=== PATIENT | female | born 1950 | race Two or more races ===

== ENCOUNTER 2017-07-26 01:21 | Inpatient (IN) | payer MEDICARE, OTHER ==
[~2017-07-26] VITALS: Ht 165.1 cm; Wt 61.7 kg
[2017-07-26 02:45] VITALS: BP 143/86
[2017-07-26] MEDS ORDERED: LORAZEPAM 0.5 MG TABLET PO PRN (04:00)
[2017-07-26] MEDS ORDERED: TEMAZEPAM 7.5 MG CAPSULE PO PRN (04:00)
[2017-07-26] MEDS ORDERED: MAG HYDROX/AL HYDROX/SIMETH 30 ML UDC PO PRN (04:00)
[2017-07-26] MEDS ORDERED: ACETAMINOPHEN 325 MG TABLET PO PRN (04:00)
[2017-07-26] MEDS ORDERED: MAGNESIUM HYDROXIDE 30 ML UDC PO PRN (04:00)
--- NOTE | 2017-07-26 04:07 | NUR ---
ADMISSION NOTES ADMITTED THIS 67 Y/O FEMALE PATIENT DIRECT ADMIT FROM [facility]. PT IS ON 5150 HOLD FOR DTO, GD. PSYCH DX OF SCHIZOPRENIA. MEDICAL DX OF HTN, ASTHMA. PER HOLD PT IS DELUSIONAL, PARANOID, AGGRESSIVE AND ASSAULTIVE TOWARDS OTHERS DUE TO MENTAL ILLNESS. PT HAS HISTORY OF PSYCHIATRIC HOSPITALIZATIONS AND NOT CURRENTLY TAKING PSYCHOTROPIC MEDICATIONS. PT IS DELUSIONAL PT STATES "I AM YASH, NO ONE WILL STOP ME." PT UNABLE TO PROVIDE FOOD, CLOTHING OR USP DUE TO MENTAL ILLNESS. PT UNABLE TO ENGAGE IN A SAFELY PLAN OR ACCEPT ASSISTANCE FROM OTHERS. UPON FACE TO FACE ASSESSMENT PATIENT IS A&O X2-3, DISORGANIZED THOUGHTS, DELUSIONAL, PARANOID, IRRITABLE, EASILY AGITATED, UNCOOPERATIVE WITH STAFF. V/S WNL. NO ACUTE RESPIRATORY DISTRESS. PT REFUSED TO SIGN CONSENT FORMS. PSYCH DR. JALLOH. MEDICAL DR. ALFONSO BOTH AWARE AND NOTIFIED OF THE ADMISSION. PT REFUSED SKIN/BODY CHECKED. REFUSED MRSA SWAB. BELONGINGS AND CONTRABAND CHECKED AND PLACED IN THE SAFE CABINET. PATIENT RIGHT HAND BOOK GIVEN AND EXPLAINED TO THE PT. ALL NEEDS ATTENDED AND ANTICIPATED. WILL CONTINUE TO MONITOR FOR SAFETY AND BEHAVIOR.
[2017-07-26] MEDS ORDERED: FLUT16SP16 NS (04:43)
[2017-07-26] MEDS ORDERED: AMLO5TAB2 PO (04:43)
[2017-07-26] MEDS ORDERED: ALBU18HF2 INH (04:43)
[2017-07-26 06:24] VITALS: BP 143/86
[2017-07-26] MEDS ORDERED: ALBUTEROL SULFATE 8 GM HFA.AER.AD IH PRN (07:30)
[2017-07-26 07:59] VITALS: BP 154/90
[2017-07-26 07:59] LABS: CHOLESTEROL 164 mg/dL (<200); HDL CHOLESTEROL 86 mg/dL (40-60); LDL 73 mg/dL (0-99); TRIGLYCERIDES 30 mg/dL (30-150)
[2017-07-26] MEDS ORDERED: ALBUTEROL FS 2.5 MG/3 ML VIAL.NEB NEB PRN (08:30)
[2017-07-26] MEDS: AMLODIPINE BESYLATE 5 MG TABLET PO SCH (08:47)
[2017-07-26] MEDS: FLUTICASONE PROPIONATE 16 GM BOTTLE NS SCH (08:47)
[2017-07-26] MEDS: DIVALPROEX SODIUM 250 MG TABLET.DR PO SCH ×2 (10:00→21:00)
[2017-07-26] MEDS: HALOPERIDOL 5 MG TABLET PO SCH ×2 (10:00→17:00)
[2017-07-26] MEDS: BENZTROPINE MESYLATE (1 MG) 1 MG TABLET PO SCH ×2 (10:00→17:00)
--- NOTE | 2017-07-26 14:27 | NUR ---
GPS RN NOTE: PATIENT IN THE ROOM WAS SEEN BY MD NO S/S DISTRESS NOTED AT THIS TIME ,PATIENT CONTINUE REFUSING MEDICATIONS, DENIES PAIN OR DISCOMFORT PATIENT ,REFUSED SKIN ASSESSMENT AND MRSA NARES WILL CONTINUE MONITORING FOR SAFETY AND BEHAVIOR Q 15 MIN.
[2017-07-26 16:00] VITALS: BP 145/90
[2017-07-26] MEDS ORDERED: HALOPERIDOL 5 MG TABLET PO SCH (17:00)
[2017-07-26 19:51] VITALS: BP 160/96
--- NOTE | 2017-07-26 21:30 | NUR ---
GPS RN: PATIENT REFUSED TO TAKE HER SCHEDULED MEDICATIONS, PER PATIENT "GO TAKE IT YOURSELF, I DON'T NEED ANYTHING RIGHT NOW!" PATIENT WAS NOTED TO BE EASILY AGITATED, GUARDED AND UNPREDICTABLE. EXPLAINED TO PATIENT THE NEED FOR COMPLIANCE, BUT PATIENT STILL REFUSED TO TAKE HER MEDS. WILL INFORM DAY SHIFT NURSE. SPRAY DRIER WANTS TO TAKE THE PATIENT'S BP. PATIENT HAD A HIGH BP READING AT THE START OF THE SHIFT BECAUSE SHE WAS AGITATED TOWARDS STAFF, RESISTING CARE AND VITAL SIGNS CAUSING TO HAVE A FALSE HIGH BP. FOR THE SECOND TAKING PATIENT REFUSED TO HAVE IT DONE THIS TIME. SHE JUST TURNED HER FACE AWAY FROM STAFF. WILL REPORT TO DAY SHIFT NURSE THE SAID BEHAVIOR.
[2017-07-27 08:00] VITALS: BP 155/90
[2017-07-27] MEDS: HALOPERIDOL 5 MG TABLET PO SCH ×2 (08:35→16:59)
[2017-07-27] MEDS: DIVALPROEX SODIUM 250 MG TABLET.DR PO SCH ×2 (08:35→21:00)
[2017-07-27] MEDS: AMLODIPINE BESYLATE 5 MG TABLET PO SCH (08:35)
[2017-07-27] MEDS: BENZTROPINE MESYLATE (1 MG) 1 MG TABLET PO SCH ×2 (08:35→16:59)
[2017-07-27] MEDS: FLUTICASONE PROPIONATE 16 GM BOTTLE NS SCH (08:35)
--- NOTE | 2017-07-27 08:35 | NUR ---
GPS RN NOTE: PATIENT IN THE ROOM RESTING IN BED AWAKE, PT PARANOID,DELUSIONAL ARGUMENTATIVE, HYPERVERBAL.PT LYING IN BED TALKING TO SELF REFUSING AM MEDICATIONS EXPLAIN RISK AND BENEFITS , PATIENT GETS VERBALLY ABUSIVE AND ARGUMENTATIVE.EXPLAIN PT IMPORTANCE MEDICATIONS PATIENT CONTINUE REFUSING X3. WILL CONTINUE MONITORING FOR SAFETY AND BEHAVIOR Q 15 MIN
[2017-07-27 16:00] VITALS: BP 134/90
--- NOTE | 2017-07-27 17:15 | NUR ---
GPS RN NOTE: PATIENT REFUSED ALL SHIFT MEDICATIONS, MRSA SWAB , SKIN ASSESSMENT,LABS. DR JALLOH AWARE NO NEW ORDERS AT THIS TIME, WILL CONTINUE MONITORING.
[2017-07-27 20:27] VITALS: BP 148/89
[2017-07-28] MEDS: FLUTICASONE PROPIONATE 16 GM BOTTLE NS SCH (08:24)
[2017-07-28] MEDS: AMLODIPINE BESYLATE 5 MG TABLET PO SCH (08:25)
[2017-07-28] MEDS: DIVALPROEX SODIUM 250 MG TABLET.DR PO SCH ×2 (08:25→21:00)
[2017-07-28] MEDS: HALOPERIDOL 5 MG TABLET PO SCH ×2 (08:25→17:00)
[2017-07-28] MEDS: BENZTROPINE MESYLATE (1 MG) 1 MG TABLET PO SCH ×2 (08:25→17:00)
[2017-07-28 15:56] VITALS: BP 161/86
[2017-07-29] MEDS: BENZTROPINE MESYLATE (1 MG) 1 MG TABLET PO SCH ×2 (08:58→17:00)
[2017-07-29] MEDS: FLUTICASONE PROPIONATE 16 GM BOTTLE NS SCH (08:58)
[2017-07-29] MEDS: DIVALPROEX SODIUM 250 MG TABLET.DR PO SCH ×2 (08:58→21:00)
[2017-07-29] MEDS: AMLODIPINE BESYLATE 5 MG TABLET PO SCH (08:59)
[2017-07-29] MEDS: HALOPERIDOL 5 MG TABLET PO SCH ×2 (08:59→17:00)
--- NOTE | 2017-07-29 15:31 | NUR ---
SW college intern as well as Preparation Room Manager made several attempts to conduct an assessment. Patient was uncooperative and hostile. Patient refused to answer any questions and became aggressive. SID attempted to call patient's "person to notify" Luis Alberto, three times. All three times the phone went straight to voicemail, but SID was unable to leave voicemail because voicemail box was full. SID also called patient's home number, with no success.
--- NOTE | 2017-07-29 16:41 | NUR ---
Initial Discharge Plan: According to face sheet, patient's address is listed as [address] [place] [address] . However, per hold it is stated that patient has lost secure housing. beater worker helper and social work internal grinder attempted three times to contact Luis Alberto, . The phone number went straight to voicemail with voicemail being full. beater worker helper was unable to leave number. beater worker helper also attempted to call patient's home and was unsuccessful. beater worker helper could not find any contact information in patient's charts/notes. beater worker helper will follow up with MD and will work to arrange safe discharge.
[2017-07-29 16:42] VITALS: BP 120/60
[2017-07-29 19:59] VITALS: BP 111/80
[2017-07-30] MEDS: DIVALPROEX SODIUM 250 MG TABLET.DR PO SCH ×2 (08:49→21:00)
[2017-07-30] MEDS: HALOPERIDOL 5 MG TABLET PO SCH ×2 (08:49→16:20)
[2017-07-30] MEDS: BENZTROPINE MESYLATE (1 MG) 1 MG TABLET PO SCH ×2 (08:49→16:20)
[2017-07-30] MEDS: AMLODIPINE BESYLATE 5 MG TABLET PO SCH (08:49)
[2017-07-30] MEDS: FLUTICASONE PROPIONATE 16 GM BOTTLE NS SCH (08:49)
--- NOTE | 2017-07-30 09:00 | NUR ---
GPS/RN PATIENT ADAMANTLY REFUSED ALL 0900 MEDICATIONS X 3, EXPLAINED RISKS AND BENEFITS, CONTINUES TO REFUSE, WILL CONTINUE TO ENCOURAGE TO COMPLY WITH MD REGIMEN.
--- NOTE | 2017-07-30 14:05 | NUR ---
DR. JALLOH MADE AWARE FOR THE [facility] HEARING SCHEDULE FOR 2:30 PM TOMORROW (07/30/17).
--- NOTE | 2017-07-30 16:26 | NUR ---
GPS/RN PATIENT ADAMANTLY REFUSED ALL 1700 MEDICATIONS X 3, EXPLAINED RISKS AND BENEFITS, CONTINUES TO REFUSE, WILL CONTINUE TO ENCOURAGE TO COMPLY WITH MD REGIMEN.
[2017-07-30 20:00] VITALS: BP 157/95
[2017-07-31] MEDS: FLUTICASONE PROPIONATE 16 GM BOTTLE NS SCH (08:31)
[2017-07-31] MEDS: BENZTROPINE MESYLATE (1 MG) 1 MG TABLET PO SCH ×2 (08:31→17:00)
[2017-07-31] MEDS: AMLODIPINE BESYLATE 5 MG TABLET PO SCH (08:32)
[2017-07-31] MEDS: DIVALPROEX SODIUM 250 MG TABLET.DR PO SCH ×2 (08:32→21:00)
[2017-07-31] MEDS: HALOPERIDOL 5 MG TABLET PO SCH ×2 (08:32→17:00)
[2017-07-31] MEDS: HALOPERIDOL LACTATE INJ 5 MG/ML VIAL IM PRN (17:29)
[2017-07-31 20:00] VITALS: BP 164/84
--- NOTE | 2017-07-31 21:05 | NUR ---
PATIENT REFUSED TO TAKE HER SCHEDULED MEDICATIONS, PER PATIENT "LEAVE ME ALONE, I DON'T NEED ANY MEDICATIONS" EXPLAINED THE RISK AND BENEFITS. PATIENT STILL REFUSED TO TAKE HER MEDS. WILL CONTINUE TO MONITOR.
[2017-08-01] MEDS: BENZTROPINE MESYLATE (1 MG) 1 MG TABLET PO SCH ×2 (08:25→17:00)
[2017-08-01] MEDS: FLUTICASONE PROPIONATE 16 GM BOTTLE NS SCH (08:25)
[2017-08-01] MEDS: AMLODIPINE BESYLATE 5 MG TABLET PO SCH (08:26)
[2017-08-01] MEDS: DIVALPROEX SODIUM 250 MG TABLET.DR PO SCH ×2 (08:26→21:00)
[2017-08-01] MEDS: HALOPERIDOL 5 MG TABLET PO SCH ×2 (08:26→17:00)
[2017-08-01] MEDS: HALOPERIDOL LACTATE INJ 5 MG/ML VIAL IM PRN ×2 (08:27→17:10)
[2017-08-01 16:00] VITALS: BP 126/92
[2017-08-01 20:00] VITALS: BP 136/88
[2017-08-02] MEDS: DIVALPROEX SODIUM 250 MG TABLET.DR PO SCH ×2 (08:55→21:00)
[2017-08-02] MEDS: FLUTICASONE PROPIONATE 16 GM BOTTLE NS SCH (08:55)
[2017-08-02] MEDS: BENZTROPINE MESYLATE (1 MG) 1 MG TABLET PO SCH ×2 (08:55→16:27)
[2017-08-02] MEDS: HALOPERIDOL LACTATE INJ 5 MG/ML VIAL IM PRN ×2 (08:56→16:38)
[2017-08-02] MEDS: HALOPERIDOL 5 MG TABLET PO SCH ×2 (08:56→16:27)
[2017-08-02] MEDS: AMLODIPINE BESYLATE 5 MG TABLET PO SCH (08:56)
[2017-08-02] MEDS ORDERED: HALOPERIDOL DECANOATE IM 100 MG/ML AMPUL IM ONE (14:30)
[2017-08-02 16:00] VITALS: BP 141/80
--- NOTE | 2017-08-02 16:43 | NUR ---
RN NOTES PATIENT REFUSED 1700 SCHEDULED MEDICATION OFFERED X3, BUT STILL REFUSED, ADMINISTERED HALDOL 5 MG/ML IM RIGHT UPPER OUTER AREA PER REFUSAL PO MEDICATION, V/S TAKEN, BP- 141/80, P-91, CONTINUED MONITORING.
--- NOTE | 2017-08-02 21:24 | NUR ---
RN NOTES PATIENT REFUSED 2100 DEPAKOTE SCHEDULED MEDICATION OFFERED X3, BUT STILL REFUSED, WILL CONTINUE TO ENCOURAGED TO COMPLY WITH MD REGIMEN .
--- NOTE | 2017-08-03 06:06 | NUR ---
RN GPS NOTES PT. REFUSED VITAL SIGNS IN DURING SHIFT , ENCOURAGED FOR VITAL SIGNS , EXPLAINED RISKS AND BENEFITS STILL REFUSED
[2017-08-03 08:00] VITALS: BP 129/79
--- NOTE | 2017-08-03 08:00 | NUR ---
GPS/RN PATIENT REFUSED VITAL SIGNS X 3, EXPLAINED RISKS AND BENEFITS, CONTINUES TO REFUSE, WILL CONTINUE TO ENCOURAGE TO COMPLY WITH REGIMEN AND TREATMENTS.
[2017-08-03] MEDS: HALOPERIDOL LACTATE INJ 5 MG/ML VIAL IM PRN ×2 (08:58→16:41)
[2017-08-03] MEDS: AMLODIPINE BESYLATE 5 MG TABLET PO SCH (09:00)
[2017-08-03] MEDS: DIVALPROEX SODIUM 250 MG TABLET.DR PO SCH ×2 (09:00→21:00)
[2017-08-03] MEDS: FLUTICASONE PROPIONATE 16 GM BOTTLE NS SCH (09:00)
[2017-08-03] MEDS: BENZTROPINE MESYLATE (1 MG) 1 MG TABLET PO SCH ×2 (09:00→16:40)
[2017-08-03] MEDS: HALOPERIDOL 5 MG TABLET PO SCH ×2 (09:00→16:40)
--- NOTE | 2017-08-03 09:00 | NUR ---
GPS/RN PATIENT REFUSED HALDOL PO X3, EXPLAINED RISKS AND BENEFITS, CONTINUES TO REFUSE, ADMINISTERED HALDOL 5MG IM FOR REFUSAL, WILL CONTINUE TO ENCOURAGE TO COMPLY WITH MD REGIMEN.
--- NOTE | 2017-08-03 11:19 | NUR ---
SW left a voicemail for pt's contact Luis Alberto, . SW left contact information. SW wished to discuss discharge plan and to validate some information on patient.
[2017-08-03 16:00] VITALS: BP 126/80
--- NOTE | 2017-08-03 16:10 | NUR ---
SID faxed inquiry to [facility] [address] [place] [address] , fax number: [phone]. SID will follow up. SID faxed inquiry to [facility] [address] [place] [address] , fax number: [phone]. SID will follow up.
--- NOTE | 2017-08-03 17:21 | NUR ---
GPS/RN PATIENT REFUSED TO PROVIDE URINE SPECIMEN FOR URINALYSIS X 3, EXPLAINED RISKS AND BENEFITS, WILL CONTINUE TO ENCOURAGE TO COMPLY WITH REGIMEN AND TREATMENTS.
--- NOTE | 2017-08-03 19:30 | NUR ---
GPS RN NOTE, RECEIVED PATIENT AWAKE AND IN BED, NO S/S OR COMPLAINTS OF PAIN AT THIS TIME. PATIENT IS DISPLAYING NO S/S OF APPARENT DISTRESS AT THIS TIME. PATIENT BREATHING IS UNLABORED WITH EQUAL RISE AND FALL OF THE CHEST. PATIENT IS ALERT AND ORIENTED X 2 ON ROOM AIR WITH A SPO2 OF 97%. PATIENT IS VERBALLY ABUSIVE AT TIMES , REFUSING MEDICATION, UNCOOPERATIVE, AND NEEDS REORIENTATION. PATIENT DENIES SUICIDE IDEATIONS AND HOMICIDAL IDEATIONS AT THIS TIME. PATIENT EDUCATED ON THE USE OF THE CALL ALCOCER. PATIENT BED SIDE RAILS UP X2 FOR SAFETY, BED IS LOCKED AND LOW, AND I WILL CONTINUE TO MONITOR AND MAINTAIN SAFETY Q15MIN WITH THE HELP OF STAFF.
--- NOTE | 2017-08-03 21:18 | NUR ---
GPS RN NOTE, PATIENT REFUSED TO TAKE DEPAKOTE 250MG 1 TAB PO Q12HR. OFFERED DEPAKOTE THREE TIMES AND STILL PATIENT REFUSED STATING, " YOU GO TO HELL AND GET TO STEPPING ". EDUCATED PATIENT ON THE RISKS AND BENEFITS OF TAKING AND REFUSING AFOREMENTIONED MEDICATION. WILL CONTINUE TO MONITOR THIS PATIENT.
--- NOTE | 2017-08-04 07:30 | NUR ---
PT RECEIVED RESTING COMFORTABLY IN BED WITH EYES CLOSED. NO S/S OR C/O PAIN OR DISTRESS NOTED. SIDE RAILS UP X2, WILL CONTINUE PLAN OF CARE.
[2017-08-04] MEDS: DIVALPROEX SODIUM 250 MG TABLET.DR PO SCH ×2 (09:00→21:00)
[2017-08-04] MEDS: BENZTROPINE MESYLATE (1 MG) 1 MG TABLET PO SCH ×2 (09:00→17:00)
[2017-08-04] MEDS: AMLODIPINE BESYLATE 5 MG TABLET PO SCH (09:00)
[2017-08-04] MEDS: FLUTICASONE PROPIONATE 16 GM BOTTLE NS SCH (09:00)
[2017-08-04] MEDS: HALOPERIDOL 5 MG TABLET PO SCH ×2 (09:00→17:00)
[2017-08-04] MEDS: HALOPERIDOL LACTATE INJ 5 MG/ML VIAL IM PRN ×2 (10:23→17:08)
--- NOTE | 2017-08-04 11:25 | NUR ---
SID received a message from January at [facility] who stated that patient was accepted into the facility. SID spoke with Tania, who stated she is pt's friend and used to be her conservator. Tania stated that some time ago the court ruled that pt no longer needed to be under a conservatorship. Tania stated that she was still close to pt. Tania informed SID that pt's boyfriend wants to take care of pt after she is stable. Tania stated that a facility was a good idea before patient returns home. Addendum: 08/04/17 at 1204 by ROHINI LAU Tania stated that she will fax over some documents that she deems important. SID will wait to receive fax
--- NOTE | 2017-08-04 18:41 | NUR ---
CHANGE OF SHIFT REPORT PT RESTING COMFORTABLY IN BED WITH EYES CLOSED. NO S/S OR C/O PAIN OR DISTRESS NOTED. SIDE RAILS UP X2. PT KEPT CLEAN, DRY, AND COMFORTABLE. NO SIGNIFICANT CHANGES SINCE PREVIOUS SHIFT. WILL GIVE REPORT TO JORGE ALBERTO NUNN.
--- NOTE | 2017-08-04 21:00 | NUR ---
RN NOTES PATIENT REFUSE VITAL SIGNS, ENCOURAGED X3, BUT STILL REFUSED, WILL CONTINUE TO ENCOURAGED TO COMPLY WITH MD REGIMEN
--- NOTE | 2017-08-04 21:29 | NUR ---
RN NOTES PATIENT REFUSED 2100 DEPAKOTE SCHEDULED MEDICATION OFFERED X3, BUT STILL REFUSED, WILL CONTINUE TO ENCOURAGED TO COMPLY WITH MD REGIMEN .
--- NOTE | 2017-08-05 06:17 | NUR ---
RN NOTES PATIENT REFUSED AM LABS ENCOURAGED X3, BUT STILL REFUSED, WILL CONTINUE TO ENCOURAGED TO COMPLY WITH MD REGIMEN
--- NOTE | 2017-08-05 07:00 | NUR ---
RN OPENING NOTES REPORT REC'VD FROM GUSTABO NUNN. PT PACING IN ACTIVITY ROOM ANGRY FACIAL EXPRESSIONS. PT REFUSED VITAL SIGNS DESPITE EXPLANATION OF VITALS IMPORTANCE FOR [facility] BP MED. WILL CONT TO MONITOR CLOSELY.
--- NOTE | 2017-08-05 08:30 | NUR ---
RN NOTES PT REFUSED PO MEDS, ADMIN HALDOL IM INJ W/ JASON AND NEVILLE STAFF. REFUSED BLOOD DRAW.
[2017-08-05] MEDS: BENZTROPINE MESYLATE (1 MG) 1 MG TABLET PO SCH ×2 (08:44→16:44)
[2017-08-05] MEDS: AMLODIPINE BESYLATE 5 MG TABLET PO SCH (08:45)
[2017-08-05] MEDS: DIVALPROEX SODIUM 250 MG TABLET.DR PO SCH ×2 (08:45→21:00)
[2017-08-05] MEDS: HALOPERIDOL LACTATE INJ 5 MG/ML VIAL IM PRN (08:45)
[2017-08-05] MEDS: HALOPERIDOL 5 MG TABLET PO SCH ×2 (08:45→16:58)
[2017-08-05] MEDS: FLUTICASONE PROPIONATE 16 GM BOTTLE NS SCH (09:00)
--- NOTE | 2017-08-05 15:30 | NUR ---
SW attempted to speak with patient regarding placement. SW also asked patient if she is able to tell pt's boyfriend, Cayden where she will be going after discharge. Patient told psychotherapist social worker, "He can see me here." SW stated, "Cayden called and stated that he will only be able to come by next week. You are probably not going to be here next week, you will be at [facility] which is a facility that will provide you with more care." Patient appeared very angry and stated, "Shut up! He can see me here." Patient appeared too agitated to participate in further conversation. SW will follow up at a later time.
--- NOTE | 2017-08-05 18:09 | NUR ---
RN CLOSING NOTES NO INCIDENTS DURING SHIFT. PT REFUSED MEDS. REISED IM HALDOL IN AM AND AFTERNOON ORDRED. GOOD APPETITE. WANDERING HALLS MAKING RANDOM STATEMENTS. CALM. DENIES SI/HI AVH.
--- NOTE | 2017-08-05 21:30 | NUR ---
RN NOTES PATIENT REFUSED 2100 DEPAKOTE 250 MG PO ,SCHEDULED MEDICATION OFFERED X3, BUT STILL REFUSED, WILL CONTINUE TO ENCOURAGED TO COMPLY WITH MD REGIMEN .
[2017-08-06 08:00] VITALS: BP 137/61
[2017-08-06] MEDS: BENZTROPINE MESYLATE (1 MG) 1 MG TABLET PO SCH ×2 (08:30→16:29)
[2017-08-06] MEDS: DIVALPROEX SODIUM 250 MG TABLET.DR PO SCH ×2 (08:30→21:00)
[2017-08-06] MEDS: FLUTICASONE PROPIONATE 16 GM BOTTLE NS SCH (08:30)
[2017-08-06] MEDS: HALOPERIDOL LACTATE INJ 5 MG/ML VIAL IM PRN ×2 (08:31→16:30)
[2017-08-06] MEDS: HALOPERIDOL 5 MG TABLET PO SCH ×2 (08:31→16:29)
[2017-08-06] MEDS: AMLODIPINE BESYLATE 5 MG TABLET PO SCH (09:00)
--- NOTE | 2017-08-06 09:00 | NUR ---
GPS/RN PATIENT ADAMANTLY REFUSED HALDOL 5 MG PO AND COGENTIN 0.5 MG PO X3, EXPLAINED RISKS AND BENEFITS, CONTINUES TO REFUSE, ADMINISTERED HALDOL 5MG IM FOR REFUSAL OF HALDOL PO, WILL CONTINUE TO ENCOURAGE TO COMPLY WITH MD REGIMEN.
--- NOTE | 2017-08-06 13:34 | NUR ---
SID faxed progress notes to January from [facility] [address] [facility], [place] [address] , fax number: [phone].
[2017-08-06 16:00] VITALS: BP 143/73
[2017-08-06 20:00] VITALS: BP 136/97
[2017-08-07] MEDS: FLUTICASONE PROPIONATE 16 GM BOTTLE NS SCH (08:59)
[2017-08-07] MEDS: AMLODIPINE BESYLATE 5 MG TABLET PO SCH (09:00)
[2017-08-07] MEDS: BENZTROPINE MESYLATE (1 MG) 1 MG TABLET PO SCH ×3 (09:00→17:00)
[2017-08-07] MEDS: DIVALPROEX SODIUM 250 MG TABLET.DR PO SCH ×2 (09:00→21:00)
[2017-08-07] MEDS: HALOPERIDOL 5 MG TABLET PO SCH ×3 (09:00→17:00)
[2017-08-07] MEDS: HALOPERIDOL LACTATE INJ 5 MG/ML VIAL IM PRN ×3 (09:16→17:28)
--- NOTE | 2017-08-07 14:57 | NUR ---
Discharge Note: Patient will be discharged to [facility] [address] [place] [address] via ambulance at 2:30pm. January at [facility] has been notified. Patients primary contact, Luis Alberto [phone], has been informed via voicemail of the discharge. SID attempted to get a hold of patients friend, Tania [phone], but the cell-phone was no longer working. SID scheduled discharge after visiting hours in case Tania and patients boyfriend, Cayden come to visit. Patient will follow up with her psychiatrist, Dr. Krause [address], [place] [address] [phone] on Sunday 08/12 at 2pm. Patient will follow up with her forms examiner, Dr. Moore [address], [place] [phone] on Saturday 08/11 at 10am. Addendum: 08/10/17 at 1122 by ROHINI LAU PATIENT WAS NOT DISCHARGED Please note SID received a message from January at [facility] at 4:06pm on 08/07 who stated that "I have a problem We, after all of this, don't have a bed available." SID inquired if one might open up over weekend and did not receive any reply
[2017-08-07 20:00] VITALS: BP 143/81
--- NOTE | 2017-08-07 23:17 | NUR ---
GPS RN NOTES PATIENT REFUSED DEPAKOTE 250 MG AT 2100. MEDICATION OFFERED 3X. EXPLAINED RISKS AND BENEFITS TO PATIENT BUT PATIENT STILL REFUSED.
[2017-08-08 08:00] VITALS: BP 140/75
[2017-08-08] MEDS: HALOPERIDOL 5 MG TABLET PO SCH ×3 (08:31→17:00)
[2017-08-08] MEDS: DIVALPROEX SODIUM 250 MG TABLET.DR PO SCH ×3 (08:31→21:18)
[2017-08-08] MEDS: BENZTROPINE MESYLATE (1 MG) 1 MG TABLET PO SCH ×3 (08:31→17:00)
[2017-08-08] MEDS: FLUTICASONE PROPIONATE 16 GM BOTTLE NS SCH (08:31)
[2017-08-08] MEDS: AMLODIPINE BESYLATE 5 MG TABLET PO SCH (08:31)
[2017-08-08] MEDS: HALOPERIDOL LACTATE INJ 5 MG/ML VIAL IM PRN ×2 (08:32→13:06)
--- NOTE | 2017-08-08 12:53 | NUR ---
DR. MATOS GAVE AN ORDER TO GIVE HALDOL DECANOATE 25 MG IM X1 TOMORROW (08/09/17).
[2017-08-08 16:00] VITALS: BP 115/71
--- NOTE | 2017-08-08 19:30 | NUR ---
GPS/WEB SEARCH EVALUATOR; RECEIVED PT IN BED SLEEPING AT THIS TIME. BREATHING NON LABORED. BED ON LOWER POSITION AND LOCKED FOR SAFETY. UPPER PART OF BED SIDE RAILS ARE UP FOR SAFETY. WILL CONTINUE TO MONITOR.
[2017-08-08 20:00] VITALS: BP 139/80
--- NOTE | 2017-08-08 21:00 | NUR ---
GPS/HOLDER PILE DRIVING; PT REFUSED TO TAKE DEPAKOTE 250 MG PO Q12. SHE SAID I DON'T TAKE MEDICATIONS AND SHE SAID FURTHER I HAD MY SHOT ALREADY. CHARGE NURSE MADE AWARE.
--- NOTE | 2017-08-09 06:20 | NUR ---
GPS /PUBLIC WORKS MANAGER; PT SLEPT FOR SEVEN AND A HALF HOURS ALAST NIGHT. MADE NO C/O . WILL CONTINUE TO MONITOR.
[2017-08-09 07:56] VITALS: BP 127/89
[2017-08-09] MEDS ORDERED: HALOPERIDOL DECANOATE IM 100 MG/ML AMPUL IM ONE (09:00)
[2017-08-09] MEDS: BENZTROPINE MESYLATE (1 MG) 1 MG TABLET PO SCH ×3 (09:00→17:00)
[2017-08-09] MEDS: FLUTICASONE PROPIONATE 16 GM BOTTLE NS SCH (09:00)
[2017-08-09] MEDS: AMLODIPINE BESYLATE 5 MG TABLET PO SCH (09:00)
[2017-08-09] MEDS: HALOPERIDOL 5 MG TABLET PO SCH ×3 (09:00→17:00)
[2017-08-09] MEDS: HALOPERIDOL LACTATE INJ 5 MG/ML VIAL IM PRN ×4 (10:06→18:14)
[2017-08-09 15:36] VITALS: BP 130/80
[2017-08-09 19:50] VITALS: BP 141/72
[2017-08-09 19:57] VITALS: BP 141/72
[2017-08-09] MEDS: DIVALPROEX SODIUM 250 MG TABLET.DR PO SCH (20:52)
--- NOTE | 2017-08-09 20:56 | NUR ---
RN NOTES pt refused her medication depakote 250 mg po .. PT STATED THAT SHE ALREADY RECEIVED A LOT OF MEDICATION DURING THE DAY PLUS THE IM SHOTS.
[2017-08-10 08:12] VITALS: BP 112/78
[2017-08-10] MEDS: AMLODIPINE BESYLATE 5 MG TABLET PO SCH (09:00)
[2017-08-10] MEDS: HALOPERIDOL 5 MG TABLET PO SCH ×3 (09:00→16:33)
[2017-08-10] MEDS: FLUTICASONE PROPIONATE 16 GM BOTTLE NS SCH (09:00)
[2017-08-10] MEDS: BENZTROPINE MESYLATE (1 MG) 1 MG TABLET PO SCH ×3 (09:00→16:33)
[2017-08-10] MEDS: DIVALPROEX SODIUM 250 MG TABLET.DR PO SCH ×2 (09:00→21:00)
--- NOTE | 2017-08-10 09:00 | NUR ---
GPS/RN PATIENT ADAMANTLY REFUSED ALL 0900 MEDICATIONS X 3, EXPLAINED RISKS AND BENEFITS, CONTINUES TO REFUSE, HALDOL 5 MG IM WAS ADMINISTERED FOR REFUSAL OF HALDOL PO 5 MG. WILL CONTINUE TO ENCOURAGE TO COMPLY WITH MD REGIMEN.
[2017-08-10] MEDS: HALOPERIDOL LACTATE INJ 5 MG/ML VIAL IM PRN ×2 (09:06→13:40)
--- NOTE | 2017-08-10 11:22 | NUR ---
SID faxed over inquiry to [facility], fax number [phone] SID faxed over inquiry to [facility], fax number [phone]
--- NOTE | 2017-08-10 12:40 | NUR ---
SID spoke with Dmitry from [facility], [phone] and arranged an assessment tomorrow 08/11 around 11am.
--- NOTE | 2017-08-10 12:42 | NUR ---
SW working with Jasmeet kaur [facility] to make some arrangements for placement. SID will follow up.
[2017-08-10 15:35] VITALS: BP 140/83
--- NOTE | 2017-08-10 16:50 | NUR ---
GPS/RN PATIENT ADAMANTLY REFUSED ALL 1700 MEDICATIONS X 3, EXPLAINED RISKS AND BENEFITS, CONTINUES TO REFUSE, WILL CONTINUE TO ENCOURAGE TO COMPLY WITH MD REGIMEN.
[2017-08-10 19:40] VITALS: BP 148/89
--- NOTE | 2017-08-10 21:00 | NUR ---
Refused to take pm meds. A/A /o times 2. No distress noted or voiced,Able to move on her own.
--- NOTE | 2017-08-11 06:11 | NUR ---
Slept most of night no distress noted or voiced.Followed fall precautions.Kept safe from harm
[2017-08-11 08:19] VITALS: BP 123/64
[2017-08-11] MEDS: FLUTICASONE PROPIONATE 16 GM BOTTLE NS SCH (08:34)
[2017-08-11] MEDS: AMLODIPINE BESYLATE 5 MG TABLET PO SCH (08:34)
[2017-08-11] MEDS: BENZTROPINE MESYLATE (1 MG) 1 MG TABLET PO SCH ×3 (08:34→17:00)
[2017-08-11] MEDS: HALOPERIDOL 5 MG TABLET PO SCH ×3 (08:34→17:00)
[2017-08-11] MEDS: DIVALPROEX SODIUM 250 MG TABLET.DR PO SCH ×2 (08:34→21:00)
--- NOTE | 2017-08-11 09:30 | NUR ---
GPS/RN PATIENT ADAMANTLY REFUSED ALL 0900 MEDICATIONS X 3, EXPLAINED RISKS AND BENEFITS, CONTINUES TO REFUSE, WILL CONTINUE TO ENCOURAGE TO COMPLY WITH MD REGIMEN.
--- NOTE | 2017-08-11 11:13 | NUR ---
SID faxed over : [facility] [phone] / fax number [phone] [facility] [phone] / fax number [phone] [facility]: fax number [phone] Tena Parikh will assess after lunch
--- NOTE | 2017-08-11 11:42 | NUR ---
The director school of nursing, as well as Dmitry from [facility], /[phone] came to assess patient and stated that she was accepted into their facility. SW will have a backup plan in place.
--- NOTE | 2017-08-11 13:00 | NUR ---
GPS/RN PATIENT ADAMANTLY REFUSED COGENTIN 0.5 MG, HALDOL 5 MG X 3, EXPLAINED RISKS AND BENEFITS, CONTINUES TO REFUSE, WILL CONTINUE TO ENCOURAGE TO COMPLY WITH MD REGIMEN.
--- NOTE | 2017-08-11 15:31 | NUR ---
SID faxed an inquiry to [facility] [phone] / fax number [phone]
--- NOTE | 2017-08-11 15:31 | NUR ---
Jl from [facility] assessed patient and informed SW that it will be difficult to place her because she does not have a strong enough skilled need and is refusing physical therapy.
[2017-08-11 16:00] VITALS: BP 100/67
--- NOTE | 2017-08-11 16:15 | NUR ---
SID heard back from [facility] who informed SID that the facility does not accept patient's over the age of 65.
[2017-08-11 20:00] VITALS: BP 155/71
[2017-08-11 20:27] VITALS: BP 155/71
--- NOTE | 2017-08-11 21:00 | NUR ---
RN NOTES: PATIENT REFUSED SCHEDULED DIVALPROEX 250 MG TAB PO AT THIS TIME. RISKS EXPLAINED TO PATIENT, PATIENT UNCOOPERATIVE AND SAID, "YOU SHOULD KNOW BY NOW THAT I REFUSE MEDS".
[2017-08-12] MEDS: BENZTROPINE MESYLATE (1 MG) 1 MG TABLET PO SCH ×2 (09:00→12:47)
[2017-08-12] MEDS: DIVALPROEX SODIUM 250 MG TABLET.DR PO SCH (09:00)
[2017-08-12] MEDS: FLUTICASONE PROPIONATE 16 GM BOTTLE NS SCH (09:00)
[2017-08-12] MEDS: HALOPERIDOL 5 MG TABLET PO SCH ×2 (09:00→12:47)
[2017-08-12] MEDS: AMLODIPINE BESYLATE 5 MG TABLET PO SCH (09:00)
--- NOTE | 2017-08-12 13:49 | NUR ---
Discharge Note Patient will be discharged to [facility] [address] [place] [address], via ambulance, scheduled for 1:30pm. When social work professor spoke with patient in the morning of discharge, patient stated that she knew she was leaving today. As patients boyfriend, Cayden [phone] was planning on visiting patient today, he was made aware of discharge. Patient will follow up with her electrical products sales engineer, Dr. Moore, [address] [facility] [address], [place] [address] [phone] on Tuesday 08/14 at 2:30pm. Patient will follow up with her psychiatrist, Dr. Krause [address] [facility] [address], [place] [address] [phone] on Thursday, 08/07 at 1pm. Patient is not a smoker and does not abuse drugs/alcohol
[2017-08-12 15:00] VITALS: BP 143/76
--- NOTE | 2017-08-12 15:04 | NUR ---
pt going to [facility] [address], [place] [address], via ambulance. pt discharge by dr. spann. printing machinist, laz, agrees with discharge. report given to receiving nurse, jennifer tomas. pt is alert oriented x 4. vital sign stable. no acute distress noted. pt is calm and cooperative. denies s/i and/or h/i at time of discharge. exitcare, prescription, and belongings given to patient. pt refuse skin assessment. left in stable condition.
== END 2017-08-12 15:00 | DRG 885 ==
LOC: GPS 02:22
PROVIDERS: ADMIT Psychiatry & Neurology Psychosomatic Medicine; ATTEND Psychiatry & Neurology Psychosomatic Medicine
DX: F25.9 Schizoaffective disorder, unspecified (principal); E46 Unspecified protein-calorie malnutrition; F29 Unspecified psychosis not due to a substance or known physiological condition; Z91.14 Patient's other noncompliance with medication regimen; I10 Essential (primary) hypertension; J45.909 Unspecified asthma, uncomplicated; Z73.6 Limitation of activities due to disability; F41.9 Anxiety disorder, unspecified; F32.9 Major depressive disorder, single episode, unspecified
CPT/HCPCS: 36415; 80061-TC; J1630; J1631